=== PATIENT | female | born 1945 | race Caucasian/White ===

== ENCOUNTER 2024-02-07 21:58 | Emergency (ER) | payer MEDICARE | END 2024-02-07 22:08 | disposition E | LOC: ED 21:58 | PROC: 5A1221J Performance of Cardiac Output, Continuous, Automated (ICD-10-PCS; principal; 2024-02-07) | DX: I46.9 Cardiac arrest, cause unspecified (principal); I10 Essential (primary) hypertension; E11.9 Type 2 diabetes mellitus without complications ==